=== PATIENT | male | born 1990 | race Caucasian/White ===

== ENCOUNTER 2017-12-18 19:05 | Inpatient (IN) | payer OTHER ==
[2017-12-18 20:05] LABS: HEMATOCRIT 41.8 % (42.0-52.0); HEMOGLOBIN 14.3 g/dl (13.5-17.5); MEAN CORPUSCULAR HEMOGLOBIN 28.8 pg (27.0-33.0); MEAN CORPUSCULAR HGB CONC 34.2 g/dl (32.0-36.5); MEAN CORPUSCULAR VOLUME 84.1 fl (80.0-96.0); PLATELET COUNT, AUTOMATED 200 10^3/uL (150-450); RED BLOOD COUNT 4.97 10^6/uL (4.30-6.10); RED CELL DISTRIBUTION WIDTH 12.2 % (11.5-14.5); WHITE BLOOD COUNT 4.3 10^3/uL (4.0-10.0)
[2017-12-18 20:41] LABS: AMPHETAMINES LEVEL URINE NEGATIVE (NEGATIVE); BARBITURATES URINE NEGATIVE (NEGATIVE); BENZODIAZEPINES URINE NEGATIVE (NEGATIVE); CANNABINOIDS URINE NEGATIVE (NEGATIVE); COCAINE METABOLITE URINE NEGATIVE (NEGATIVE); METHADONE URINE NEGATIVE (NEGATIVE); OPIATES URINE NEGATIVE (NEGATIVE); PHENCYCLIDINE URINE NEGATIVE (NEGATIVE)
[2017-12-18 20:50] LABS: ALBUMIN 4.1 GM/DL (3.2-5.2); ALBUMIN/GLOBULIN RATIO 1.46 (1.00-1.93); ALKALINE PHOSPHATASE 51 U/L (45-117); ALT/SGPT 19 U/L (12-78); ANION GAP 6 MEQ/L (8-16); AST/SGOT 13 U/L (7-37); BILIRUBIN,DIRECT 0.4 MG/DL (0.0-0.2); BILIRUBIN,TOTAL 2.3 MG/DL (0.2-1.0); BLOOD UREA NITROGEN 9 MG/DL (7-18); CALCIUM LEVEL 8.9 MG/DL (8.5-10.1); CARBON DIOXIDE LEVEL 29 MEQ/L (21-32); CHLORIDE LEVEL 105 MEQ/L (98-107); CREATININE FOR GFR 0.99 MG/DL (0.70-1.30); ETHYL ALCOHOL (ETHANOL) < 0.003 % (0.000-0.010); GLOMERULAR FILTRATION RATE > 60.0 (>60); GLUCOSE, FASTING 101 MG/DL (70-100); POTASSIUM SERUM 4.5 MEQ/L (3.5-5.1); SALICYLATE LEVEL < 1.7 MG/DL (5.0-30.0); SODIUM LEVEL 140 MEQ/L (136-145); THYROID STIMULATING HORMONE 0.972 uIU/ML (0.358-3.740); TOTAL PROTEIN 6.9 GM/DL (6.4-8.2)
[2017-12-18 20:53] LABS: ACETAMINOPHEN LEVEL < 2.0 UG/ML (10.0-30.0)
[2017-12-18] MEDS ORDERED: MOM 30ML SUSPENSION UDC PO (23:00)
[2017-12-18] MEDS ORDERED: traZODone 50 MG TAB PO (23:00)
[2017-12-18] MEDS ORDERED: MAALOX 30 ML SUSP *UDC PO (23:00)
[2017-12-19] MEDS ORDERED: hydrOXYzine 25 MG TAB PO (11:30)
[2017-12-19] MEDS: SERTRALINE HCL 25 MG TABLET PO (11:47)
[2017-12-19] MEDS: DOXEPIN 25 MG CAP PO (21:06)
[2017-12-19] MEDS: PRAZOSIN 1 MG CAP PO (21:07)
[2017-12-20] MEDS: SERTRALINE HCL 25 MG TABLET PO (08:07)
[2017-12-20 08:17] LABS: ALBUMIN 3.7 GM/DL (3.2-5.2); ALBUMIN/GLOBULIN RATIO 1.37 (1.00-1.93); ALKALINE PHOSPHATASE 50 U/L (45-117); ALT/SGPT 18 U/L (12-78); ANION GAP 5 MEQ/L (8-16); AST/SGOT 13 U/L (7-37); BILIRUBIN,TOTAL 1.2 MG/DL (0.2-1.0); BLOOD UREA NITROGEN 10 MG/DL (7-18); CALCIUM LEVEL 8.6 MG/DL (8.5-10.1); CARBON DIOXIDE LEVEL 29 MEQ/L (21-32); CHLORIDE LEVEL 107 MEQ/L (98-107); CREATININE FOR GFR 1.02 MG/DL (0.70-1.30); GLOMERULAR FILTRATION RATE > 60.0 (>60); GLUCOSE, FASTING 97 MG/DL (70-100); POTASSIUM SERUM 4.2 MEQ/L (3.5-5.1); SODIUM LEVEL 141 MEQ/L (136-145); TOTAL PROTEIN 6.4 GM/DL (6.4-8.2)
[2017-12-20] MEDS: NICOTINE 21MG/24HR 1 EA TRANSDERMAL TD (15:58)
[2017-12-20] MEDS: ACETAMINOPHEN TAB 650MG DOSE (2X325MG) PO (17:10)
[2017-12-20] MEDS: DOXEPIN 25 MG CAP PO (20:53)
[2017-12-20] MEDS: PRAZOSIN 1 MG CAP PO (20:54)
[2017-12-21] MEDS: NICOTINE 21MG/24HR 1 EA TRANSDERMAL TD (08:39)
[2017-12-21] MEDS: SERTRALINE HCL 25 MG TABLET PO (08:39)
[2017-12-21] MEDS: ACETAMINOPHEN TAB 650MG DOSE (2X325MG) PO (14:31)
[2017-12-21] MEDS: DOXEPIN 25 MG CAP PO (20:51)
[2017-12-21] MEDS: PRAZOSIN 1 MG CAP PO (20:51)
[2017-12-22] MEDS: ACETAMINOPHEN TAB 650MG DOSE (2X325MG) PO ×3 (07:40→21:29)
[2017-12-22] MEDS: SERTRALINE HCL 25 MG TABLET PO (08:17)
[2017-12-22] MEDS: NICOTINE 21MG/24HR 1 EA TRANSDERMAL TD (15:27)
[2017-12-22] MEDS: PRAZOSIN 1 MG CAP PO (21:29)
[2017-12-22] MEDS: DOXEPIN 25 MG CAP PO (21:29)
[2017-12-23] MEDS: SERTRALINE HCL 25 MG TABLET PO (08:30)
[2017-12-23] MEDS: ACETAMINOPHEN TAB 650MG DOSE (2X325MG) PO (08:31)
== END 2017-12-23 13:25 | disposition home or self-care (01) | DRG 885 ==
LOC: M ED 19:05 → M ED INP 22:47 → M PSY 23:49
DX: F32.2 Major depressive disorder, single episode, severe without psychotic features (principal); F43.10 Post-traumatic stress disorder, unspecified; F43.21 Adjustment disorder with depressed mood; M25.562 Pain in left knee; Z63.5 Disruption of family by separation and divorce

== ENCOUNTER 2018-08-03 18:08 | Emergency (ER) | payer OTHER ==
[~2018-08-03] VITALS: Ht 175.3 cm; Wt 94.1 kg
[~2018-08-03 18:08] MED LIST: DOXE50CA PO; IBUP200C25 PO; MINI1CAP PO; SERT25TA PO
[2018-08-03] MEDS ORDERED: IBUPROFEN 800 MG TAB PO ONE (19:15)
--- NOTE | 2018-08-03 19:41 | REPVR ---
EXAM: CT Head Without Contrast EXAM DATE/TIME: 08/03/2018 7:25 PM CLINICAL HISTORY: 28 years old, male; Pain; Headache; Additional info: Hit head TECHNIQUE: Axial computed tomography images of the head/brain without contrast. All CT scans at this facility use at least one of these dose optimization techniques: automated exposure control; mA and/or kV adjustment per patient size (includes targeted exams where dose is matched to clinical indication); or iterative reconstruction. COMPARISON: No relevant prior studies available. FINDINGS: Brain: Normal. No hemorrhage. No significant white matter disease. No edema. Ventricles: Normal. No ventriculomegaly. Bones/joints: Normal. No acute fracture. Sinuses: Normal as visualized. No acute sinusitis. Mastoid air cells: Normal as visualized. No mastoid effusion. Soft tissues: Normal. IMPRESSION: No acute intracranial abnormality. Electronically signed by: Spencer Ley On 08/03/2018 19:41:08 PM
--- NOTE | 2018-08-03 19:43 | REPVR ---
EXAM: CT Cervical Spine Without Contrast EXAM DATE/TIME: 08/03/2018 7:25 PM CLINICAL HISTORY: 28 years old, male; Injury or trauma; Fall; Initial encounter; Blunt trauma; Additional info: Fell/neck pain TECHNIQUE: Axial computed tomography images of the cervical spine without intravenous contrast. All CT scans at this facility use at least one of these dose optimization techniques: automated exposure control; mA and/or kV adjustment per patient size (includes targeted exams where dose is matched to clinical indication); or iterative reconstruction. Coronal and sagittal reformatted images were created and reviewed. COMPARISON: No relevant prior studies available. FINDINGS: Vertebrae: Mild reversal of cervical lordosis may be positional. Discs/Spinal canal/Neural foramina: No spinal stenosis. No neural foraminal narrowing. Soft tissues: Unremarkable. Lungs: Lung apices are normal. IMPRESSION: No acute findings. Electronically signed by: Spencer Ley On 08/03/2018 19:43:16 PM
--- NOTE | 2018-08-03 19:46 | REPVR ---
EXAM: CT Temporal Bones Without Contrast. EXAM DATE/TIME: 08/03/2018 7:25 PM CLINICAL HISTORY: 28 years old, male; Injury or trauma; Fall; Initial encounter; Concussion /head injury; Without loss of consciousness; Additional info: Hit head TECHNIQUE: Axial computed tomography images of the temporal bones without intravenous contrast. All CT scans at this facility use at least one of these dose optimization techniques: automated exposure control; mA and/or kV adjustment per patient size (includes targeted exams where dose is matched to clinical indication); or iterative reconstruction. Coronal reformatted images were created and reviewed. COMPARISON: No relevant prior studies available. FINDINGS: Right ossicles and middle ear: Normal. Right inner ear: Normal. Right facial nerve canal: Normal. Right external auditory canal: Normal. Right carotid canal: Normal. Right mastoid air cells: Normal. No mastoid effusions. Right temporomandibular joint: Normal. Left ossicles and middle ear: Normal. Left inner ear: Normal. Left facial nerve canal: Normal. Left internal auditory canal: Normal. Left external auditory canal: Normal. Left carotid canal: Normal. Left mastoid air cells: Normal. No mastoid effusions. Left temporomandibular joint: Normal. Bones/joints: Normal. No acute fracture. IMPRESSION: No acute findings. Electronically signed by: Spencer Ley On 08/03/2018 19:45:53 PM
[2018-08-03 20:15] VITALS: BP 114/63
== END 2018-08-03 20:24 | disposition home or self-care (01) ==
LOC: M ED 18:08 → EDBD 18:08 → M ED 20:24
DX: S06.0X0A Concussion without loss of consciousness, initial encounter (principal); W01.198A Fall on same level from slipping, tripping and stumbling with subsequent striking against other object, initial encounter; Y92.139 Unspecified place military base as the place of occurrence of the external cause; Y99.1 Military activity; R20.0 Anesthesia of skin; F41.9 Anxiety disorder, unspecified; F32.9 Major depressive disorder, single episode, unspecified; F43.10 Post-traumatic stress disorder, unspecified; Z87.891 Personal history of nicotine dependence; Z79.899 Other long term (current) drug therapy